=== PATIENT | female | born 1950 | race Caucasian/White ===

== ENCOUNTER 2017-09-14 10:50 | Inpatient (IN) | payer OTHER, BC ==
[2017-09-14] VITALS (7 sets, daily range): BP systolic 138–178; BP diastolic 65–86
[~2017-09-14] VITALS: Ht 335.3 cm; Wt 115.5 kg
[~2017-09-14 10:50] MED LIST: ADULT LOW DOSE81 M1 PO; ALEVE220 M2 PO; ATORVASTATIN CA20 MG PO; BYSTOLIC5 MG PO; CALTRATE 6001 TABLET PO; DETROL LA4 MG PO; DICLOFENAC SODI75 MG PO; DIOVAN HCT 81 TABLET PO; ESCITALOPRAM OX10 MG PO; FLOMAX0.4 MG PO; FUROSEMIDE40 MG PO; HUMALOG100 UNIT/2 SC; LEVEMIR FL100 UNIT/1 SC; LEVEMIR FL100 UNITS/ SC; LEVEMIR100 UNIT/1 SQ; LEXAPRO10 MG PO; LIPITOR20 MG PO; LISINOPRIL5 MG PO; LOVAZA1 GM PO; METFORMIN HCL1000 MG PO; NOVOLIN N100 UNIT/1 IM; NOVOLOG PE100 UNITS/ SC; NOVOLOG100 UNIT/1 SQ; OMEPRAZOLE40 M1 PO; PERCOCET 5-3251 EACH PO; PERCOCET 5/31 TABLET PO; PRILOSEC40 MG PO; PROzac PO; SPIRONOLACTONE25 MG PO; SYNTHROID125 MCG PO; TOVIAZ4 MG PO; VANCOMYCIN HCL125 MG PO; VITAMIN D32000 UNI1 PO; ZOFRAN ODT4 MG PO
[2017-09-14 11:32] LABS: BASOPHIL (%) 0.5 % (0-1); BASOPHIL COUNT 0.1 K/uL (0-0.1); EOSINOPHIL (%) 1.7 % (0-5); EOSINOPHIL COUNT 0.2 K/uL (0-0.3); HEMATOCRIT 42.3 % (36.0-46.0); HEMOGLOBIN 13.9 G/DL (11.9-15.5); IMMATURE GRANULOCYTE (%) 0.6 % (0.0-0.7); LYMPHOCYTE (%) 18.6 % (15-42); LYMPHOCYTE COUNT 1.7 K/uL (1.0-2.8); MCH 32.1 PG (29.0-34.0); MCHC 32.9 G/DL (30.0-36.0); MCV 97.7 FL (83-99); MONOCYTE (%) 4.8 % (3-12); MONOCYTE COUNT 0.5 K/uL (0-0.8); NEUTROPHIL (%) 73.8 % (45-76); NEUTROPHIL COUNT 6.9 K/uL (1.8-6.4); PLATELET COUNT 344 K/uL (156-360); RBC DIS.WIDTH-CV 13.3 % (11.8-14.6); RBC DIS.WIDTH-SD 48.3 % (39-53); RED BLOOD COUNT 4.33 M/uL (3.80-5.20); WHITE BLOOD COUNT 9.3 K/uL (4.1-10.2)
[2017-09-14 11:41] LABS: ALBUMIN 4.1 g/dL (3.2-4.8)
[2017-09-14 11:42] LABS: CHLORIDE 107 mEq/L (99-109); POTASSIUM 4.4 mEq/L (3.7-5.4); SODIUM 139 mEq/L (136-147)
[2017-09-14 11:44] LABS: GLUCOSE 218 mg/dL (70-99)
[2017-09-14 11:46] LABS: TOTAL BILIRUBIN 0.3 mg/dL (0.0-1.0)
[2017-09-14 11:47] LABS: ALKALINE PHOSPHATASE 75 IU/L (3-129)
[2017-09-14 11:48] LABS: CREATININE 2.1 mg/dL (0.6-1.3); GFR ESTIMATE (CALCULATED) 25 mL/min/
[2017-09-14 11:49] LABS: AST (GOT) 15 IU/L (2-34); UREA NITROGEN (BUN) 32 mg/dL (9-23)
[2017-09-14 11:51] LABS: ALT (GPT) 13 IU/L (3-49)
[2017-09-14 11:54] LABS: TROP-I INTERPRETATION NEGATIVE; TROPONIN-I 0.02 ng/mL (0.0-0.30)
[2017-09-14] MEDS ORDERED: SYNTHROID112 MCG PO (13:11)
[2017-09-14] MEDS ORDERED: LOVAZA1 GM PO ×2 (13:12)
[2017-09-14] MEDS ORDERED: LASIX20 MG PO (13:14)
[2017-09-14] MEDS ORDERED: ROCALTROL0.25 MCG PO (13:15)
[2017-09-14] MEDS ORDERED: VITAMIN B-121000 MC3 PO (13:15)
[2017-09-14] MEDS ORDERED: HUMULIN R500 UNIT/1 SC ×2 (13:16)
[2017-09-14] MEDS ORDERED: ROXICODONE5 MG PO (13:17)
[2017-09-14] MEDS ORDERED: DIOVAN160 MG PO (13:17)
[2017-09-14] MEDS ORDERED: HYGROTON25 MG PO (13:17)
[2017-09-14] MEDS ORDERED: NEURONTIN100 MG PO (13:17)
[2017-09-14] MEDS ORDERED: DETROL LA4 MG PO (13:18)
[2017-09-14 14:06] LABS: INTER. NORMALIZED RATIO 1.1
[2017-09-14 14:12] LABS: PTT 27.1 SEC (25-37)
[2017-09-15] VITALS (20 sets, daily range): BP systolic 147–195; BP diastolic 63–89
[2017-09-15 05:54] LABS: MCH 30.9 PG (29.0-34.0); MCHC 31.7 G/DL (30.0-36.0); MCV 97.4 FL (83-99); PLATELET COUNT 371 K/uL (156-360); RBC DIS.WIDTH-CV 13.3 % (11.8-14.6); RBC DIS.WIDTH-SD 47.5 % (39-53); RED BLOOD COUNT 4.21 M/uL (3.80-5.20); WHITE BLOOD COUNT 10.9 K/uL (4.1-10.2)
[2017-09-15 06:15] LABS: CHLORIDE 104 MEQ/L (99-109); CREATININE 1.8 MG/DL (0.6-1.3); GFR ESTIMATE (CALCULATED) 30 mL/min/; GLUCOSE 271 mg/dL (70-99); SODIUM 137 MEQ/L (136-147); UREA NITROGEN (BUN) 33 mg/dL (9-23)
[2017-09-15 06:28] LABS: POTASSIUM 5.8 MEQ/L (3.7-5.4)
[2017-09-15 15:36] LABS: INTER. NORMALIZED RATIO 1.1
[2017-09-15 22:36] LABS: BASE EXCESS -1.5 mEq/L (-3 to +3); BICARBONATE 24.8 mEq/L (22-26); CARBOXY HGB 0.7 % (0-5); METHEMOGLOBIN 1.2 % (0-1.5); PCO2 47 mm Hg (35-45); PO2 49 mm Hg (80-100); SITE LR; pH 7.33 (7.35-7.45)
[2017-09-15 22:37] LABS: COMMENTS - BLOOD GASES C+; DEVICE NCHH; FI02 100 %; O2 FLOW 70 L/MIN; TOTAL RESP RATE 26 resp/min
[2017-09-16] VITALS (16 sets, daily range): BP systolic 114–179; BP diastolic 62–91
[2017-09-16 04:26] LABS: BASOPHIL (%) 0.4 % (0-1); EOSINOPHIL (%) 0.2 % (0-5); HEMOGLOBIN 12.4 G/DL (11.9-15.5); IMMATURE GRANULOCYTE (%) 0.5 % (0.0-0.7); LYMPHOCYTE (%) 16.4 % (15-42); LYMPHOCYTE COUNT 1.8 K/uL (1.0-2.8); MCH 31.9 PG (29.0-34.0); MCHC 32.6 G/DL (30.0-36.0); MCV 97.7 FL (83-99); MONOCYTE (%) 5.6 % (3-12); MONOCYTE COUNT 0.6 K/uL (0-0.8); NEUTROPHIL (%) 76.9 % (45-76); NEUTROPHIL COUNT 8.4 K/uL (1.8-6.4); PLATELET COUNT 305 K/uL (156-360); RBC DIS.WIDTH-CV 13.4 % (11.8-14.6); RED BLOOD COUNT 3.89 M/uL (3.80-5.20)
[2017-09-16 04:37] LABS: CHLORIDE 107 mEq/L (99-109); SODIUM 140 mEq/L (136-147)
[2017-09-16 04:39] LABS: GLUCOSE 151 mg/dL (70-99)
[2017-09-16 04:43] LABS: CREATININE 1.9 mg/dL (0.6-1.3); GFR ESTIMATE (CALCULATED) 28 mL/min/
[2017-09-16 04:44] LABS: UREA NITROGEN (BUN) 30 mg/dL (9-23)
[2017-09-16 15:14] LABS: INTER. NORMALIZED RATIO 1.2
[2017-09-17] VITALS (9 sets, daily range): BP systolic 153–193; BP diastolic 68–87
[2017-09-17 05:39] LABS: INTER. NORMALIZED RATIO 1.2
[2017-09-17 05:42] LABS: PTT 51.9 SEC (25-37)
[2017-09-18] VITALS (9 sets, daily range): BP systolic 140–194; BP diastolic 64–93
[2017-09-18 05:40] LABS: INTER. NORMALIZED RATIO 1.6
[2017-09-18 05:42] LABS: PTT 61.5 SEC (25-37)
[2017-09-18 06:05] LABS: CHLORIDE 100 MEQ/L (99-109); CREATININE 1.5 MG/DL (0.6-1.3); GFR ESTIMATE (CALCULATED) 37 mL/min/; GLUCOSE 146 mg/dL (70-99); POTASSIUM 4.4 MEQ/L (3.7-5.4); SODIUM 137 MEQ/L (136-147); UREA NITROGEN (BUN) 27 mg/dL (9-23)
[2017-09-19] VITALS (10 sets, daily range): BP systolic 155–201; BP diastolic 61–91
[2017-09-19 06:27] LABS: HEMATOCRIT 36.3 % (36.0-46.0); HEMOGLOBIN 11.8 G/DL (11.9-15.5); MCH 30.8 PG (29.0-34.0); MCHC 32.5 G/DL (30.0-36.0); MCV 94.8 FL (83-99); PLATELET COUNT 326 K/uL (156-360); RBC DIS.WIDTH-SD 45.1 % (39-53); RED BLOOD COUNT 3.83 M/uL (3.80-5.20); WHITE BLOOD COUNT 10.5 K/uL (4.1-10.2)
[2017-09-19 06:32] LABS: CHLORIDE 97 MEQ/L (99-109); CREATININE 1.6 MG/DL (0.6-1.3); GFR ESTIMATE (CALCULATED) 34 mL/min/; GLUCOSE 131 mg/dL (70-99); MAGNESIUM 1.4 mg/dl (1.3-2.7); POTASSIUM 4.4 MEQ/L (3.7-5.4); SODIUM 137 MEQ/L (136-147); UREA NITROGEN (BUN) 27 mg/dL (9-23)
[2017-09-19 07:21] LABS: INTER. NORMALIZED RATIO 2.4
[2017-09-19 07:22] LABS: PTT 49.6 SEC (25-37)
[2017-09-20 05:59] LABS: INTER. NORMALIZED RATIO 3.2
[2017-09-20 08:19] VITALS: BP 193/85
[2017-09-20 11:49] VITALS: BP 145/63
[2017-09-20 12:39] LABS: HEMATOCRIT 39.9 % (36.0-46.0); HEMOGLOBIN 13.3 G/DL (11.9-15.5); MCH 31.8 PG (29.0-34.0); MCHC 33.3 G/DL (30.0-36.0); MCV 95.5 FL (83-99); PLATELET COUNT 310 K/uL (156-360); RBC DIS.WIDTH-SD 45.6 % (39-53); RED BLOOD COUNT 4.18 M/uL (3.80-5.20); WHITE BLOOD COUNT 9.1 K/uL (4.1-10.2)
[2017-09-20 12:49] LABS: CHLORIDE 95 MEQ/L (99-109); POTASSIUM 5.1 MEQ/L (3.7-5.4); SODIUM 134 MEQ/L (136-147)
[2017-09-20 12:56] LABS: CREATININE 1.7 MG/DL (0.6-1.3); GFR ESTIMATE (CALCULATED) 32 mL/min/; UREA NITROGEN (BUN) 37 mg/dL (9-23)
[2017-09-20 13:04] LABS: GLUCOSE 307 mg/dL (70-99)
[2017-09-20 16:20] VITALS: BP 182/75
[2017-09-20 19:10] VITALS: BP 146/65
[2017-09-20 23:38] VITALS: BP 156/68
[2017-09-21 04:00] VITALS: BP 151/66
[2017-09-21 05:39] LABS: BASOPHIL (%) 0.1 % (0-1); EOSINOPHIL (%) 0 % (0-5); HEMATOCRIT 39.4 % (36.0-46.0); HEMOGLOBIN 12.7 G/DL (11.9-15.5); IMMATURE GRANULOCYTE (%) 1.2 % (0.0-0.7); LYMPHOCYTE (%) 9.4 % (15-42); MCHC 32.2 G/DL (30.0-36.0); MCV 93.1 FL (83-99); MONOCYTE (%) 5.7 % (3-12); MONOCYTE COUNT 0.6 K/uL (0-0.8); NEUTROPHIL (%) 83.6 % (45-76); NEUTROPHIL COUNT 8.5 K/uL (1.8-6.4); PLATELET COUNT 354 K/uL (156-360); RBC DIS.WIDTH-CV 12.7 % (11.8-14.6); RBC DIS.WIDTH-SD 43.4 % (39-53); RED BLOOD COUNT 4.23 M/uL (3.80-5.20); WHITE BLOOD COUNT 10.1 K/uL (4.1-10.2)
[2017-09-21 06:04] LABS: CHLORIDE 95 MEQ/L (99-109); CREATININE 1.9 MG/DL (0.6-1.3); GFR ESTIMATE (CALCULATED) 28 mL/min/; GLUCOSE 333 mg/dL (70-99); POTASSIUM 4.8 MEQ/L (3.7-5.4); SODIUM 135 MEQ/L (136-147); UREA NITROGEN (BUN) 50 mg/dL (9-23)
[2017-09-21 06:28] LABS: INTER. NORMALIZED RATIO 4.8
[2017-09-21 07:54] VITALS: BP 136/65
[2017-09-21 11:33] VITALS: BP 155/70
[2017-09-21 15:53] VITALS: BP 175/74
[2017-09-21 20:28] VITALS: BP 146/65
[2017-09-21 23:37] VITALS: BP 148/67
[2017-09-22 04:20] VITALS: BP 156/76
[2017-09-22 06:12] LABS: INTER. NORMALIZED RATIO 4.7
[2017-09-22 06:47] VITALS: BP 172/79
[2017-09-22 09:12] LABS: HEMATOCRIT 40.8 % (36.0-46.0); HEMOGLOBIN 13.5 G/DL (11.9-15.5); MCH 31.3 PG (29.0-34.0); MCHC 33.1 G/DL (30.0-36.0); MCV 94.4 FL (83-99); PLATELET COUNT 381 K/uL (156-360); RBC DIS.WIDTH-CV 12.9 % (11.8-14.6); RED BLOOD COUNT 4.32 M/uL (3.80-5.20); WHITE BLOOD COUNT 9.7 K/uL (4.1-10.2)
[2017-09-22 09:33] LABS: CHLORIDE 97 MEQ/L (99-109); POTASSIUM 4.5 MEQ/L (3.7-5.4); SODIUM 137 MEQ/L (136-147)
[2017-09-22 09:38] LABS: CREATININE 1.9 MG/DL (0.6-1.3); GFR ESTIMATE (CALCULATED) 28 mL/min/; GLUCOSE 244 mg/dL (70-99); UREA NITROGEN (BUN) 66 mg/dL (9-23)
[2017-09-22 12:13] VITALS: BP 179/81
[2017-09-22 15:34] VITALS: BP 177/76
[2017-09-22 20:00] VITALS: BP 144/65
[2017-09-22 23:30] VITALS: BP 158/59
[2017-09-23 03:30] VITALS: BP 153/63
[2017-09-23 05:34] LABS: BASOPHIL (%) 0.1 % (0-1); EOSINOPHIL (%) 0.4 % (0-5); HEMATOCRIT 39.7 % (36.0-46.0); HEMOGLOBIN 12.9 G/DL (11.9-15.5); LYMPHOCYTE (%) 30.3 % (15-42); LYMPHOCYTE COUNT 3.3 K/uL (1.0-2.8); MCH 30.6 PG (29.0-34.0); MCHC 32.5 G/DL (30.0-36.0); MCV 94.1 FL (83-99); MONOCYTE COUNT 1.1 K/uL (0-0.8); NEUTROPHIL (%) 58.2 % (45-76); NEUTROPHIL COUNT 6.3 K/uL (1.8-6.4); PLATELET COUNT 373 K/uL (156-360); RBC DIS.WIDTH-CV 12.7 % (11.8-14.6); RED BLOOD COUNT 4.22 M/uL (3.80-5.20); WHITE BLOOD COUNT 10.9 K/uL (4.1-10.2)
[2017-09-23 06:16] LABS: CHLORIDE 98 MEQ/L (99-109); CREATININE 1.9 MG/DL (0.6-1.3); GFR ESTIMATE (CALCULATED) 28 mL/min/; GLUCOSE 161 mg/dL (70-99); POTASSIUM 3.9 MEQ/L (3.7-5.4); SODIUM 137 MEQ/L (136-147); UREA NITROGEN (BUN) 62 mg/dL (9-23)
[2017-09-23 07:16] VITALS: BP 158/73
[2017-09-23 08:19] LABS: BASE EXCESS 3.8 mEq/L (-3 to +3); BICARBONATE 29.2 mEq/L (22-26); CARBOXY HGB 1.4 % (0-5); METHEMOGLOBIN 0.8 % (0-1.5); PCO2 46 mm Hg (35-45); PO2 72 mm Hg (80-100); pH 7.41 (7.35-7.45)
[2017-09-23 08:20] LABS: COMMENTS - BLOOD GASES C+; DEVICE NC; O2 FLOW 2 L/MIN; SITE LR; TOTAL RESP RATE 18 resp/min
[2017-09-23 11:15] VITALS: BP 142/63
[2017-09-23] MEDS ORDERED: NIFEDIPINE ER30 MG PO (11:38)
[2017-09-23] MEDS ORDERED: SPIRONOLACTONE50 MG PO (11:40)
[2017-09-23] MEDS ORDERED: PREDNISONE20 MG PO (11:40)
[2017-09-23] MEDS ORDERED: COUMADIN1 MG PO (11:49)
== END 2017-09-23 14:39 | disposition home health service (06) | DRG 299 ==
LOC: EME 10:50 → 4WEST 12:50 → EDOF 12:50 → ENRESERV 12:57 → CANRESERV 12:57 → EDOF 12:57 → ENRESERV 13:04 → EDOF 13:30 → 4WEST 14:36 → ENRESERV 09-19 08:56 → 4WEST 09-19 08:59 → 4EAST 09-19 09:48 → ENRESERV 09-23 09:13 → CANRESERV 09-23 09:42 → ENRESERV 09-23 09:42 → 4EAST 09-23 14:39
PROVIDERS: Emergency Medicine Emergency Medical Services; Internal Medicine; Internal Medicine Critical Care Medicine; Internal Medicine Pulmonary Disease
DX: I82.431 Acute embolism and thrombosis of right popliteal vein (principal); I26.99 Other pulmonary embolism without acute cor pulmonale; J96.11 Chronic respiratory failure with hypoxia; N17.9 Acute kidney failure, unspecified; G47.33 Obstructive sleep apnea (adult) (pediatric); E10.22 Type 1 diabetes mellitus with diabetic chronic kidney disease; I13.0 Hypertensive heart and chronic kidney disease with heart failure and stage 1 through stage 4 chronic kidney disease, or unspecified chronic kidney disease; E66.01 Morbid (severe) obesity due to excess calories; I25.10 Atherosclerotic heart disease of native coronary artery without angina pectoris; I48.91 Unspecified atrial fibrillation; J98.11 Atelectasis; E88.81 Metabolic syndrome and other insulin resistance; E78.5 Hyperlipidemia, unspecified; E03.9 Hypothyroidism, unspecified; N18.3 Chronic kidney disease, stage 3 (moderate); R79.1 Abnormal coagulation profile; G89.29 Other chronic pain; F32.9 Major depressive disorder, single episode, unspecified; K21.9 Gastro-esophageal reflux disease without esophagitis; Z88.5 Allergy status to narcotic agent; Z95.0 Presence of cardiac pacemaker; Z90.710 Acquired absence of both cervix and uterus; Z87.891 Personal history of nicotine dependence; Z79.01 Long term (current) use of anticoagulants; Z79.4 Long term (current) use of insulin
CPT/HCPCS: 36600; 71045; 71275; 80048; 80053; 81003; 82803; 82948; 83605; 83735; 83880; 84484; 85025; 85027; 85379; 85610; 85730; 87040; 87641; 93005; 93306; 93970; 94002; 94003; 94640; 94640 76; 94760; 94799; 97530 GP; 99202; 99281; 99285; C1753; J0780; J1815; J1940; J2405; J2930; J7030; J7040; J7512